=== PATIENT | male | born 1995 | race Caucasian/White ===

== ENCOUNTER 2017-03-15 12:05 | Emergency (ER) | payer OTHER ==
[~2017-03-15] VITALS: Ht 185.4 cm; Wt 76.3 kg
[~2017-03-15 12:05] MED LIST: CHOLTAB3 PO; CLR10 PO; MISCCAP80 PO
[2017-03-15 12:08] VITALS: TEMP 36.7; Ht 185.4 cm; Wt 76.3 kg
[2017-03-15] MEDS ORDERED: TRIA1SPR4 NAE (12:27)
[2017-03-15] MEDS ORDERED: CLR10 PO (12:27)
[2017-03-15] MEDS ORDERED: VNTHFA/IN INH (12:27)
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
--- NOTE | 2017-03-15 13:25 | DIAGNOSTIC IMAGING REPORT ---
CHEST ONE VIEW PORTABLE CLINICAL HISTORY: 21 years-old Male presenting with Pt c/o SOB, Rt shoulder pain. TECHNIQUE: Portable upright AP view of the chest was obtained. COMPARISON: None. FINDINGS: Cardiomediastinal silhouette normal. Lungs and pleural spaces clear. Osseous structures normal. Upper abdomen normal. IMPRESSION: 1. No acute cardiopulmonary disease. Electronically signed by: Zackary Gillette M.D. 03/15/2017 1:23 PM Dictated Date/Time: 03/15/2017 1:22 PM
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
[2017-03-15] MEDS ORDERED: BACI500O11 TOP (13:42)
[2017-03-15 14:05] VITALS: BP 93/71; PULSE 67; O2SAT 100
== END 2017-03-15 14:22 | disposition home or self-care (01) ==
LOC: C.EDB 12:08 → C.EDC 14:22
DX: S40.811A Abrasion of right upper arm, initial encounter (principal); V28.0XXA Motorcycle driver injured in noncollision transport accident in nontraffic accident, initial encounter; Y92.89 Other specified places as the place of occurrence of the external cause; J45.909 Unspecified asthma, uncomplicated; Z82.49 Family history of ischemic heart disease and other diseases of the circulatory system; Y92.488 Other paved roadways as the place of occurrence of the external cause